=== PATIENT | male | born 1990 | race Asian ===

== ENCOUNTER 2017-09-21 14:45 | Emergency (ER) | payer BC, OTHER ==
[2017-09-21 14:56] VITALS: RESP 16
--- NOTE | 2017-09-21 16:53 | EDPHY ---
General Narrative: CHIEF COMPLAINT: Hand laceration HISTORY OF PRESENT ILLNESS: Patient complains of laceration to the right hand that happened 4-5 hours ago. He was cleaning a glass and had a sharp edge on top when it cut him. There were no shards of glass. The glass did not break. Minimally painful. Bleeding stopped with pressure. He washed it off with water and put some Neosporin on it. No difficulty bending or straightening the fingers. No numbness or tingling. No other associated complaints or modifying factors. TIME OF INJURY: Less than 3 hours prior to arrival TETANUS STATUS: Uncertain MEDICAL/SURGICAL/SOCIAL HISTORY: No medical history REVIEW OF SYSTEMS: Ten systems reviewed and are negative unless otherwise noted in the HPI EXAMINATION General Appearance: Alert, no distress Head: normocephalic, atraumatic Cardiovascular: Pulses normal throughout. Symmetric radial pulses. Brisk cap refill Neurological: A&O, sensory symmetric, strength symmetric. Good strength of the interossei. Skin: Warm and dry, no rash. 0.5 cm curvilinear/v-shaped laceration over the radial side of the hand between the thumb and the index finger base. No foreign body. No pulsatile bleeding. Neurovascular intact distally Extremities: Nontender, no pedal edema DIFFERENTIAL DIAGNOSES: Including but not limited to laceration, complex laceration, laceration with tendon injury MDM: 4:50 p.m. Superficial laceration of the right hand over the ridge, radially. No foreign body. No underlying vascular or tendinous structures. Wound has been anesthetized. Irrigate and closure. 5:20 p.m. Wound re-evaluated. The wound is clean and has no foreign body. Proceed with closure 5:35 p.m. Simple closure with 4 sutures. Wound care discussed. ED precautions discussed. Suture removal in 7-10 days. PROCEDURE: Laceration repair Consent: Verbal Location: Right hand, radial side of the 2nd metacarpal between the thumb and the index finger MCP joints. Length of repair: 1.5 cm, v-shaped curvilinear Complexity: Simple Layer involvement: Single Anesthesia: Local per 1% lidocaine plain. 5 mL Irrigation: Extensive Debridement: None Procedure description: Following good anesthesia, the wound was copiously irrigated. Wound bed was explored and there is no foreign body noted. Wound borders were approximated well with good hemostasis. Tolerated well without complication. Suture/Staple material: 5-0 Prolene. Four simple interrupted sutures Wound care: Routine as discussed Suture/Staple removal: 7-10 Days ED Precautions: Worsening pain. Erythema, edema, cyanosis, pallor, paresthesia or anesthesia. - History Smoking Status: Never smoked - Objective Vital Signs: Initial Vital Signs Temperature (C) 97.5 F 09/21/17 14:55 Heart Rate 65 09/21/17 14:55 Respiratory Rate 16 09/21/17 14:55 Blood Pressure 136/89 H 09/21/17 14:55 O2 Sat (%) 98 09/21/17 14:55 O2 Delivery Mode Room Air Allergies/Adverse Reactions: No Known Allergies Allergy (Unverified 09/21/17 14:58) Home Medications: Medication Instructions Recorded NK [No Known Home Meds] 09/21/17 Medications Given: Discontinued Medications Diphtheria/Tetanus/Acell Pertussis (Boostrix) 0.5 ml IM .ONCE ONE Stop: 09/21/17 16:55 Last Admin: 09/21/17 16:58 Dose: 0.5 ml Departure - Departure Disposition: Home, Routine, Self-Care Clinical Impression: Laceration of hand, right Qualifiers: Encounter type: initial encounter Foreign body presence: without foreign body Qualified Code(s): S61.411A - Laceration without foreign body of right hand, initial encounter Condition: Good Instructions: Care For Your Stitches (ED), Laceration (ED) Additional Instructions: 1. Daily wound care as discussed 2. ED precautions for worsening pain, redness, fever, purulence 3. Return here in 7-10 days for suture removal 4. Work restrictions as documented and discussed Referrals: NONE *PRIMARY CARE P,. [Primary Care Provider] - As per Instructions Terry Laguna MD [Medical Doctor] - As per Instructions Physician,Emergency Dept, [Medical Doctor] - As per Instructions Stand Alone Forms: Work Limited Duty, Work Excuse
[2017-09-21] MEDS ORDERED: TDAP ADULT 0.5 ML INJ (BOOSTRIX) IM ONE (16:54)
[2017-09-21] MEDS ORDERED: BACITRACIN OINTMENT 1 PACKET TP ONE (17:34)
[2017-09-21 17:56] VITALS: BP 116/64; PULSE 88; TEMP 97.7; O2SAT 96
== END 2017-09-21 17:46 | disposition home or self-care (01) ==
PROC: 0HQFXZZ Repair Right Hand Skin, External Approach (ICD-10-PCS; principal; 2017-09-21)
DX: S61.411A Laceration without foreign body of right hand, initial encounter (principal); Z23 Encounter for immunization; W25.XXXA Contact with sharp glass, initial encounter